=== PATIENT | female | born 1940 | race Caucasian/White ===

== ENCOUNTER → 2017-01-20 | Outpatient (CLI) | payer BC ==
[~2017-01-20] MED LIST: COUMADIN PO; LEVO75TA25 PO; LIOT5TAB PO; MULTTAB58 PO; NXM/40 PO
[2017-01-20 10:35] LABS: BASO % 0.6 %; BASO ABS # 0.04 K/uL (0-0.2); COMPLETE YES; HEMATOCRIT 44.3 % (37-47); IG% 0.2 %; LYMPH ABS # 2.13 K/uL (1.2-3.4); MEAN CELL VOLUME 84.4 fL (80-100); MEAN CORPUSCULAR HEMOGLOBIN 27.8 pg (25-34); MEAN PLATELET VOLUME 9.8 fL (7.4-10.4); MONO % 6.9 %; NEUT % 54.3 %; PLATELET COUNT 217 K/uL (130-400); RED BLOOD COUNT 5.25 M/uL (4.2-5.4); WHITE BLOOD COUNT 6.27 K/uL (4.8-10.8)
[2017-01-20 10:38] LABS: ESTIMATED AVERAGE GLUCOSE 140 mg/dl; HA1C FLAG Normal (Normal)
[2017-01-20 12:25] LABS: CALCIUM 9.1 mg/dl (8.5-10.1)
[2017-01-20 12:27] LABS: ALT/SGPT 29 U/L (12-78); AST/SGOT 22 U/L (15-37); BLOOD UREA NITROGEN 18 mg/dl (7-18); CARBON DIOXIDE 26 mmol/L (21-32); CHLORIDE 107 mmol/L (98-107); CHOLESTEROL 199 mg/dl (0-200); GLUCOSE 116 mg/dl (70-99); POTASSIUM 3.8 mmol/L (3.5-5.1); SODIUM 142 mmol/L (136-145); TRIGLYCERIDES 145 mg/dl (0-150); VERY LOW DENSITY LIPOPROT CALC 29 mg/dl
[2017-01-20 12:37] LABS: CHOLESTEROL/HDL RATIO 3.7; HDL CHOLESTEROL 54 mg/dl; LDL CHOLESTEROL CALCULATED 116 mg/dl
== END | disposition home or self-care (01) ==
LOC: C.LAB1850 09:17
PROVIDERS: ATTEND Internal Medicine
DX: E55.9 Vitamin D deficiency, unspecified (principal); E11.9 Type 2 diabetes mellitus without complications; M25.50 Pain in unspecified joint; E78.00 Pure hypercholesterolemia, unspecified; E03.9 Hypothyroidism, unspecified; I10 Essential (primary) hypertension

== ENCOUNTER → 2017-04-12 | Outpatient (CLI) | payer BC ==
--- NOTE | 2017-04-12 15:23 | MAMMOGRAPHY REPORT ---
BILATERAL DIGITAL SCREENING MAMMOGRAM WITH CAD: 04/12/2017 CLINICAL HISTORY: Routine screening. Patient has no complaints. TECHNIQUE: Bilateral CC and MLO views were obtained. Current study was also evaluated with a Compute r Aided Detection (CAD) system. COMPARISON: Comparison is made to exams dated: 04/09/2016 mammogram, 04/05/2015 mammogram, 04/03/2014 m ammogram, 08/21/2011 mammogram, 08/25/2010 mammogram, and 08/20/2010 mammogram - [facility]. BREAST COMPOSITION: There are scattered areas of fibroglandular density in both breasts. FINDINGS: There is a stable metallic biopsy marker in the lower outer anterior right breast. A stabl e grouping of punctate microcalcifications in the upper outer right breast. No new suspicious mass, architectural distortion or cluster of microcalcifications is seen bilaterally. IMPRESSION: ACR BI-RADS CATEGORY 1: NEGATIVE There is no mammographic evidence of malignancy. A 1 year screening mammogram is recommended. The pa tient will receive written notification of the results. Approximately 10% of breast cancers are not detected with mammography. A negative mammographic report should not delay biopsy if a clinically suggestive mass is present. Keisha Real M.D. ay/:04/12/2017 11:20:55 [employer] Teacher: Chuyita DILL)([place])([place]), [facility] letter sent: Normal 1/2 BI-RADS Code: ACR BI-RADS Category 1: Negative
== END | disposition home or self-care (01) ==
LOC: C.MAMM 08:41
PROVIDERS: ATTEND Internal Medicine
DX: Z12.31 Encounter for screening mammogram for malignant neoplasm of breast (principal)

== ENCOUNTER → 2017-07-19 | Outpatient (CLI) | payer BC ==
[2017-07-19 09:38] LABS: BLOOD UREA NITROGEN 19 mg/dl (7-18); BUN/CREATININE RATIO 18.5 (10-20); CALCIUM 9.1 mg/dl (8.5-10.1); CARBON DIOXIDE 29 mmol/L (21-32); CHLORIDE 102 mmol/L (98-107); CREATININE 1.02 mg/dl (0.60-1.20); GLUCOSE 136 mg/dl (70-99); POTASSIUM 3.8 mmol/L (3.5-5.1); SODIUM 139 mmol/L (136-145)
[2017-07-19 09:48] LABS: CHOLESTEROL 217 mg/dl (0-200); CHOLESTEROL/HDL RATIO 3.7; HDL CHOLESTEROL 59 mg/dl; LDL CHOLESTEROL CALCULATED 122 mg/dl; TRIGLYCERIDES 178 mg/dl (0-150); VERY LOW DENSITY LIPOPROT CALC 36 mg/dl
[2017-07-19 10:55] LABS: ESTIMATED AVERAGE GLUCOSE 140 mg/dl; HA1C FLAG Normal (Normal)
== END | disposition home or self-care (01) ==
LOC: C.LAB1850 07:23
PROVIDERS: ATTEND Internal Medicine
DX: E11.9 Type 2 diabetes mellitus without complications (principal); E03.9 Hypothyroidism, unspecified; E78.00 Pure hypercholesterolemia, unspecified

== ENCOUNTER → 2017-07-29 | Outpatient (CLI) | payer BC ==
--- NOTE | 2017-07-29 10:54 | DIAGNOSTIC IMAGING REPORT ---
L SCAPULA HISTORY: 77 years-old Female THORACIC BACK PAIN chronic left scapular pain for 6 months. No reported trauma. COMPARISON: Chest radiographs 07/15/2015 TECHNIQUE: 2 views of the left scapula FINDINGS: No acute fracture or dislocation identified. At least mild glenohumeral and acromioclavicular osteoarthritis. No opaque foreign body or intra-articular loose body. Imaged lung onofre are clear. IMPRESSION: No acute fracture or dislocation. The above report was generated using voice recognition software. It may contain grammatical, syntax or spelling errors. Electronically signed by: Torsten Fields M.D. 07/29/2017 10:53 AM Dictated Date/Time: 07/29/2017 10:52 AM
== END | disposition home or self-care (01) ==
LOC: C.RAD1850 10:31
PROVIDERS: ATTEND Internal Medicine
DX: M54.6 Pain in thoracic spine (principal)

== ENCOUNTER → 2017-12-30 | Outpatient (CLI) | payer BC ==
--- NOTE | 2017-12-30 16:14 | DIAGNOSTIC IMAGING REPORT ---
R VENOUS DOPP LOWER EXT UNILAT HISTORY: 77 years-old Female CALF PAIN acute pain and swelling of the right lower extremity COMPARISON: None available TECHNIQUE: Multiple real-time sonographic images of the right lower extremity deep venous structures were obtained assessing grayscale appearance, color and spectral flow FINDINGS: Normal compressibility, flow, phasicity and augmentation of the right lower extremity deep venous structures. IMPRESSION: No sonographic evidence of deep venous thrombosis. The above report was generated using voice recognition software. It may contain grammatical, syntax or spelling errors. Electronically signed by: Torsten Fields M.D. 12/30/2017 4:12 PM Dictated Date/Time: 12/30/2017 4:11 PM
== END | disposition home or self-care (01) ==
LOC: C.ULTR 15:40
PROVIDERS: ATTEND Nurse Practitioner Adult Health
DX: M79.606 Pain in leg, unspecified (principal); M79.89 Other specified soft tissue disorders; Z86.718 Personal history of other venous thrombosis and embolism

== ENCOUNTER → 2018-01-10 | Outpatient (CLI) | payer BC ==
--- NOTE | 2018-01-10 08:40 | DIAGNOSTIC IMAGING REPORT ---
RIGHT KNEE 2 VIEWS HISTORY: M25.561 Right knee [id number] COMPARISON: None. FINDINGS: There is no fracture or dislocation. Soft tissues are unremarkable. No knee effusion. Cartilage spaces are maintained for age. IMPRESSION: Unremarkable right knee. Electronically signed by: Andrea Sykes M.D. 01/10/2018 8:39 AM Dictated Date/Time: 01/10/2018 8:38 AM
[2018-01-10 09:51] LABS: BASO % 0.8 %; BASO ABS # 0.05 K/uL (0-0.2); EOS % 5.2 %; EOS ABS # 0.34 K/uL (0-0.5); HEMATOCRIT 44.1 % (37-47); HEMOGLOBIN 14.7 g/dL (12.0-16.0); IG# 0.03 K/uL (0.00-0.02); LYMPH ABS # 2.56 K/uL (1.2-3.4); MEAN CELL VOLUME 84.3 fL (80-100); MEAN CORPUSCULAR HEMOGLOBIN 28.1 pg (25-34); MEAN CORPUSCULAR HGB CONC 33.3 g/dl (32-36); MEAN PLATELET VOLUME 9.8 fL (7.4-10.4); MONO % 6.1 %; NEUT % 48.4 %; NEUT ABS # 3.19 K/uL (1.4-6.5); PLATELET COUNT 214 K/uL (130-400); RED CELL DISTRIBUTION WIDTH CV 13.3 % (11.5-14.5); RED CELL DISTRIBUTION WIDTH SD 40.3 fL (36.4-46.3); WHITE BLOOD COUNT 6.57 K/uL (4.8-10.8)
[2018-01-10 10:19] LABS: T3 FREE 3.11 pg/ml (2.30-4.20)
[2018-01-10 10:28] LABS: ALKALINE PHOSPHATASE 80 U/L (45-117); ALT/SGPT 32 U/L (12-78); AST/SGOT 28 U/L (15-37); BLOOD UREA NITROGEN 18 mg/dl (7-18); CALCIUM 8.8 mg/dl (8.5-10.1); CARBON DIOXIDE 26 mmol/L (21-32); CHOLESTEROL 206 mg/dl (0-200); CREATININE 0.98 mg/dl (0.60-1.20); GLUCOSE 140 mg/dl (70-99); LDL CHOLESTEROL CALCULATED 119 mg/dl; POTASSIUM 3.8 mmol/L (3.5-5.1); SODIUM 139 mmol/L (136-145); TOTAL PROTEIN 7.9 gm/dl (6.4-8.2)
[2018-01-10 11:25] LABS: HEMOGLOBIN A1C 6.7 % (4.5-5.6)
== END | disposition home or self-care (01) ==
LOC: C.RAD1850 07:53
PROVIDERS: ATTEND Nurse Practitioner Family
DX: M25.561 Pain in right knee (principal); E03.9 Hypothyroidism, unspecified; E78.00 Pure hypercholesterolemia, unspecified; I10 Essential (primary) hypertension; E11.9 Type 2 diabetes mellitus without complications; R53.83 Other fatigue; E55.9 Vitamin D deficiency, unspecified

== ENCOUNTER → 2018-04-14 | Outpatient (CLI) | payer BC ==
--- NOTE | 2018-04-14 15:09 | MAMMOGRAPHY REPORT ---
BILATERAL DIGITAL SCREENING MAMMOGRAM TOMOSYNTHESIS WITH CAD: 04/14/2018 CLINICAL HISTORY: Routine screening. Patient has no complaints. TECHNIQUE: Breast tomosynthesis in addition to standard 2D mammography was performed. Current study w as also evaluated with a Computer Aided Detection (CAD) system. COMPARISON: Comparison is made to exams dated: 04/12/2017 mammogram, 04/09/2016 mammogram, 04/05/2015 m ammogram, 04/03/2014 mammogram, 08/21/2011 mammogram, and 08/20/2010 mammogram - [facility]. BREAST COMPOSITION: There are scattered areas of fibroglandular density in both breasts. FINDINGS: No suspicious masses, calcifications, or areas of architectural distortion are noted in either breast . There has been no significant interval change compared to prior exams. Small cluster of calcificat ions in the right lateral breast on the cc view is stable dating back to at least the 2008 exam. A b iopsy clip is again noted within the right anterior breast. IMPRESSION: ACR BI-RADS CATEGORY 2: BENIGN There is no mammographic evidence of malignancy. A 1 year screening mammogram is recommended.( [id number]) The patient will receive written notification of the results. Some breast cancers are not detected with mammography. A negative mammographic report should not soila y biopsy if a clinically suggestive mass is present. Heidi Perez M.D. ah/:04/14/2018 07:48:50 Workers Compensation Analyst: Kourtney Chávez RT(R)(M), [facility] letter sent: Normal 1/2 BI-RADS Code: ACR BI-RADS Category 2: Benign
== END | disposition home or self-care (01) ==
LOC: C.MAMM 07:18
PROVIDERS: ATTEND Nurse Practitioner Family
DX: Z12.31 Encounter for screening mammogram for malignant neoplasm of breast (principal)